=== PATIENT | female | born 1985 | race Two or more races ===

== ENCOUNTER 2017-05-16 06:49 | Inpatient (IN) | payer SELFPAY ==
[2017-05-16] MEDS ORDERED: NS 50 ML IV + SPIKE MINIBAG* 50 ML IV ONE (06:53)
[2017-05-16] MEDS ORDERED: LR 1000 ML IV 1,000 ML IV ONE ×2 (06:53→07:08)
[2017-05-16] MEDS ORDERED: ANCEF VIAL 1 GM ONE (06:54)
[2017-05-16] MEDS ORDERED: ANCEF VIAL 1 GM 1 GM in NS 50 ML IV + SPIKE MINIBAG* 50 ML IV PRN (07:00)
[2017-05-16] MEDS ORDERED: DURAMORPH ONE (07:05)
[2017-05-16 07:34] LABS: BASOPHILS # (AUTO) 0.1 X10^3/uL (0.0-0.1); BASOPHILS % (AUTO) 0.6 % (0.2-1.0); EOSINOPHILS # (AUTO) 0.1 x10^3/uL (0.0-0.2); EOSINOPHILS % (AUTO) 0.9 % (0.9-2.9); HEMATOCRIT 29.8 % (36.0-47.0); HEMOGLOBIN 9.9 g/dL (12.0-16.0); LYMPHOCYTES # (AUTO) 2.2 X10^3/uL (1.3-2.9); MEAN CORPUSCULAR HEMOGLOBIN 25.2 pg (27.0-34.0); MEAN CORPUSCULAR HGB CONC 33.2 g/dL (33.0-35.0); MEAN CORPUSCULAR VOLUME 75.9 fL (80.0-100.0); MEAN PLATELET VOLUME 8.6 fL (7.4-11.0); MONOCYTES # (AUTO) 0.4 x10^3/uL (0.3-0.8); MONOCYTES % (AUTO) 4.4 % (0.0-13.0); NEUTROPHILS # (AUTO) 7.2 x10^3/uL (2.2-4.8); NEUTROPHILS % (AUTO) 72.1 % (42.0-75.0); PLATELET COUNT 254 X10^3/uL (150.0-450.0); RED BLOOD COUNT 3.92 X10^6/uL (3.5-5.4); RED CELL DISTRIBUTION WIDTH 15.2 % (11.6-16.5); WHITE BLOOD COUNT 9.9 X10^3/uL (3.6-10.0)
[2017-05-16 07:38] LABS: BLOOD UREA NITROGEN 8 mg/dL (7-18); CALCIUM 7.8 mg/dL (8.5-10.1); CARBON DIOXIDE 23.1 mmol/L (21-32); CHLORIDE 106 mmol/L (98-107); CREATININE 0.53 mg/dL (0.55-1.02); GLUCOSE 82 mg/dL (65-99); SODIUM 139 mmol/L (136-145); eGFR BLACK RACES > 60 (>60); eGFR NON BLACK RACES > 60 (>60)
[2017-05-16 07:43] LABS: HYPOCHROMASIA SLIGHT; PLATELET MORPHOLOGY COMMENT NORMAL (NORMAL)
[2017-05-16] MEDS ORDERED: NS IRRIGATION 1000 ML 1,000 ML IR ONE (08:20)
[2017-05-16 08:49] LABS: BILIRUBIN,URINE NEGATIVE (NEGATIVE); BLOOD/HEMOGLOBIN,URINE 3+ (NEGATIVE); GLUCOSE, URINE NEGATIVE (NEGATIVE); KETONES,URINE 2+ (NEGATIVE); LEUKOCYTE ESTERASE ,URINE NEGATIVE (NEGATIVE); NITRITES,URINE NEGATIVE (NEGATIVE); PROTEIN,URINE NEGATIVE (NEGATIVE); UROBILINOGEN,URINE NORMAL (NORMAL)
[2017-05-16 09:00] LABS: APPEARANCE,URINE HAZY (CLEAR); COLOR,URINE YELLOW (YELLOW)
[2017-05-16] MEDS ORDERED: ZOFRAN INJ 4 MG VIAL IVP PRN ×2 (09:00→09:01)
[2017-05-16 09:01] LABS: BACTERIA,URINE TRACE /HPF (NEGATIVE); SQUAMOUS EPITHELIAL CELL,UR NEGATIVE /HPF (NEGATIVE)
[2017-05-16] MEDS ORDERED: PHENERGAN INJ 25 MG IVP PRN ×2 (09:01→11:35)
[2017-05-16] MEDS ORDERED: BENADRYL INJ 50 MG VIAL IVP PRN (09:01)
[2017-05-16] MEDS ORDERED: MYLICON TAB 80 MG CHEW PO PRN (09:15)
[2017-05-16] MEDS ORDERED: LR 1000 ML IV 1,000 ML IV SCH (10:00)
[2017-05-16] MEDS ORDERED: DEXFERRUM or INFED 1,000 MG in NS 500 ML IV 500 ML IV ONE ×2 (10:00→12:00)
[2017-05-16] MEDS ORDERED: D5 1/2 NS 1000 ML 1,000 ML with PITOCIN 20 UNITS IV SCH ×2 (10:00)
[2017-05-16] MEDS: LR 1000 ML IV 1,000 ML IV SCH ×3 (11:16→15:18)
[2017-05-16] MEDS: DEXFERRUM or INFED 25 MG in NS 100 ML IV 100 ML IV ONE ×2 (11:25→11:26)
[2017-05-16] MEDS ORDERED: DEXFERRUM or INFED 25 MG in NS 100 ML IV 100 ML IV ONE (12:00)
[2017-05-16] MEDS: MOTRIN TAB 800 MG PO PRN (13:30)
[2017-05-16] MEDS ORDERED: ZOFRAN INJ 4 MG VIAL ONE (15:04)
[2017-05-16] MEDS ORDERED: PITOCIN ONE (15:04)
[2017-05-16] MEDS ORDERED: EPHEDRINE SULFATE INJ ONE (15:04)
[2017-05-16] MEDS ORDERED: TORADOL 30 MG VIAL ONE (15:45)
[2017-05-17] MEDS: LR 1000 ML IV 1,000 ML IV SCH ×4 (01:02→16:48)
[2017-05-17] MEDS: MOTRIN TAB 800 MG PO PRN ×3 (01:05→16:50)
[2017-05-17 05:02] LABS: HEMATOCRIT 24.2 % (36.0-47.0); HEMOGLOBIN 8.1 g/dL (12.0-16.0)
[2017-05-17] MEDS ORDERED: PHARMACY CONSULT - DOSE _____ XX SCH (10:00)
[2017-05-18] MEDS: LR 1000 ML IV 1,000 ML IV SCH (00:07)
[2017-05-18] MEDS: PERCOCET TAB 5/325 MG PO PRN ×2 (00:08→06:15)
[2017-05-18] MEDS: MOTRIN TAB 800 MG PO PRN (09:59)
[2017-05-18 12:47] VITALS: BP 127/72
[2017-05-18] MEDS ORDERED: COLACE CAP 100 MG PO SCH (21:00)
== END 2017-05-18 14:15 | disposition home or self-care (01) | DRG 766 ==
LOC: LD 06:49 → MED/SURG 09:53
PROVIDERS: ADMIT Obstetrics & Gynecology Obstetrics; ATTEND Obstetrics & Gynecology Obstetrics
PROC: 0UB70ZZ Excision of Bilateral Fallopian Tubes, Open Approach (ICD-10-PCS; 2017-05-16)
PROC: 10D00Z1 Extraction of Products of Conception, Low, Open Approach (ICD-10-PCS; principal; 2017-05-16 07:30)
DX: O34.211 Maternal care for low transverse scar from previous cesarean delivery (principal); N85.8 Other specified noninflammatory disorders of uterus; Z3A.38 38 weeks gestation of pregnancy; Z30.2 Encounter for sterilization; D50.8 Other iron deficiency anemias; Z23 Encounter for immunization
CPT/HCPCS: 36415; 80048; 81001; 85014; 85018; 85025; 86592; 86850; 86900; 86901; A4222; J0690; J1750; J1885; J2405; J2550; J2590; J7120